=== PATIENT | female | born 1950 | race Asian ===

== ENCOUNTER 2017-03-08 12:47 | Outpatient (CLI) | payer OTHER ==
--- NOTE | 2017-03-09 09:28 | XRAY Report ---
LEFT HAND, THREE VIEWS: 03/08/2017 Moderate degree of narrowing is noted at the base of the first metacarpal and adjacent trapezium. Pr ominent spurring is seen at the base of the first metacarpal. Mild narrowing is noted of the left fi rst MP joint. Comminuted, impacted, dorsally angulated fracture of the distal left radius is once again seen. This has been fully described on patient's forearm fracture x-ray. There are no additional fractures pre sent. Patient's left hand and carpal bones appear intact. IMPRESSION: ACUTE COMMINUTED, IMPACTED AND DORSALLY ANGULATED FRACTURE OF THE DISTAL LEFT RADIUS IS ONCE AGAIN SEEN WITH INVOLVEMENT OF ITS DISTAL ARTICULAR SURFACE. EXAMINATION IS NEGATIVE FOR ADDITIONAL FRACTURES. OSTEOARTHRITIS IS NOTED OF MODERATE DEGREE AT THE ARTICULATION BETWEEN THE BASE OF THE FIRST METACARP AL AND TRAPEZIUM. JOB #: [id number] EXT JOB #:[id number]
--- NOTE | 2017-03-09 09:41 | XRAY Report ---
LEFT FOREARM, TWO VIEWS: 03/08/2017 FINDINGS: Acute mildly comminuted, dorsally angulated, mildly impacted fracture of the distal right radius is seen. Fracture probably involves the articular surface of the distal right radius. It mo ws an element of mild non-apposition on the lateral view between the major fracture fragments. The m ajor distal fracture fragment shows 47 degrees of angulation in relationship to the major proximal fr agment. Left ulna is intact including the left ulnar styloid process. IMPRESSION: ACUTE COMMINUTED, IMPACTED AND ANGULATED FRACTURE OF THE DISTAL LEFT RADIUS WITH PROBABL Y INVOLVEMENT OF ITS DISTAL ARTICULAR SURFACE. THERE IS 47 DEGREES OF ANGULATION OF THE DISTAL RADIA L FRACTURE FRAGMENT SEEN. COMMENT: Dr. Velasco informed the patient's physician, Dr. Muse of the above findings. Dr. Muse directed radiology staff to send the patient to the emergency room for treatment. This was done on 03/08/2017 at 1:20 p.m. JOB #: [id number] EXT JOB #:[id number]
== END 2017-03-08 12:48 | disposition home or self-care (01) ==
LOC: DI 12:47
PROVIDERS: ATTEND Family Medicine
DX: S52.502A Unspecified fracture of the lower end of left radius, initial encounter for closed fracture (principal)

== ENCOUNTER 2017-03-08 13:20 | Emergency (ER) | payer OTHER ==
[2017-03-08] MEDS ORDERED: BUPIVACAINE 0.5% PF 30 ML VIAL ONE (16:42)
--- NOTE | 2017-03-08 17:00 | ED Physician Documentation ---
PD HPI UPPER EXT INJURY - Stated complaint Stated Complaint: LT ARM INJURY - Chief complaint Chief Complaint: Ext Problem - History obtained from History obtained from: Patient, Friend - History of Present Illness Location: Left, Wrist Type of injury: Fall Where injury occurred: Home Timing - onset: Last night Timing - duration: Hours Timing - details: Abrupt onset, Still present Improved by: Rest, Ice, Immobilization Worsened by: Moving, Palpating Associated symptoms: Swelling, Discolored. No: Weakness, Numbness, Tingling Contributing factors: No: Anticoagulated Similar symptoms before: Has not had sx before Recently seen: Not recently seen - Additonal information Additional information: 66 y/o female on a 2 step ladder fell landing on the out stretched left hand and fracturing the left distal radius. She went in to see her PMD today and was x-rayed and has a fracture and she is sent here for reduction and splinting. Review of Systems Constitutional: denies: Fever Eyes: denies: Decreased vision Ears: denies: Ear pain Nose: denies: Congestion Throat: denies: Sore throat Cardiac: denies: Chest pain / pressure, Palpitations Respiratory: denies: Dyspnea, Cough GI: denies: Abdominal Pain, Nausea, Vomiting : denies: Dysuria, Frequency Skin: denies: Rash Musculoskeletal: reports: Extremity pain, Joint pain, Extremity swelling, Joint swelling. denies: Neck pain, Back pain Neurologic: denies: Generalized weakness, Focal weakness, Numbness PD PAST MEDICAL HISTORY - Present Medications Home Medications: Ambulatory Orders Medication Instructions Recorded Confirmed HYDROcod/ACETAM 5/325 [[place] 5/325] 1 - 2 ea PO Q6H PRN #15 tablet 03/08/17 - Allergies Allergies/Adverse Reactions: Allergies Allergy/AdvReac Type Severity Reaction Status Date / Time codeine AdvReac insomnia Verified 03/08/17 13:30 PD ED PE NORMAL - Vitals Vital signs reviewed: Yes (hypertensive) - General General: No acute distress, Well developed/nourished - HEENT HEENT: PERRL, Other (There is an ill defined area of tenderness to the left occiput without large hematoma and the neck is without tenderness. ) - Neck Neck: Supple, no meningeal sign, No bony TTP - Respiratory Respiratory: No respiratory distress - Back Back: No CVA TTP, No spinal TTP - Derm Derm: Normal color, No rash - Extremities Extremities: No edema, Other (There is swelling ecchymosis and deformity consistent with a distal radius fracture. There is preserved ROM and the patient notes that it does not hurt as much as it did last night. The distal n/ v is intact and the elbow and shoulder at not involved. ) - Neuro Neuro: No motor deficit, No sensory deficit - Psych Psych: Normal mood, Normal affect Results - Vitals Vitals: Vital Signs - 24 hr 03/08/17 03/08/17 03/08/17 13:26 17:45 17:55 Temperature 37.1 C Heart Rate 73 84 72 Respiratory 16 14 16 Rate Blood Pressure 138/90 H 154/90 H 150/78 H O2 Saturation 98 100 98 03/08/17 03/08/17 03/08/17 18:00 18:05 18:10 Temperature Heart Rate 68 69 69 Respiratory 14 14 13 Rate Blood Pressure 138/83 H 128/83 H 128/83 H O2 Saturation 100 100 96 03/08/17 19:00 Temperature Heart Rate 65 Respiratory 12 Rate Blood Pressure 114/72 O2 Saturation 94 Oxygen O2 Source Room air - Rads (name of study) Left forearm Radiology: EMP read indepedently (Distal radius fracture with dorsal angulation) Left wrist post reduction Radiology: Prelim report reviewed (Impression: Acute left distal radius fracture has been reduced into improved alignment. Mild dorsal displacement remains.), EMP read indepedently, See rad report Procedures - Procedural sedation Sedation prep: Informed consent, Time out completed, PE performed, AHA 1 - healthy Sedation medications: dilaudid, versed Patient status during sedation: Drowsy, Responds to verbal, Responds to tactile , Vitals remained stable, Maintained airway, Recovered uneventfully Sedation recovery: Recovered uneventfully, Back to baseline PD MEDICAL DECISION MAKING - ED course Complexity details: reviewed results, re-evaluated patient, considered differential, d/w patient, d/w family ED course: 66 y/o female with a FOOSH last night has a fracture of the distal left radius and Dr. Miles is consulted in the case and comes to the ED for reduction. The reduction is done with dilaudid and versed with splinting into a sugar tong. The reduction is done by Dr. Miles and the conscious sedation by the ED team. Departure - Departure Disposition: 01 Home, Self Care Clinical Impression: Left radial fracture Qualifiers: Encounter type: initial encounter Radius location: distal Fracture type: closed Fracture morphology: unspecified fracture morphology Qualified Code(s): S52.502A - Unspecified fracture of the lower end of left radius, initial encounter for closed fracture Condition: Stable Instructions: ED Fx Upper Ext Follow-Up: [facility] [Provider Group] Matthew Huitron DO [Primary Care Provider] - Prescriptions: HYDROcod/ACETAM 5/325 [[place] 5/325] 1 - 2 ea PO Q6H PRN #15 tablet PRN Reason: Pain
[2017-03-08] MEDS ORDERED: HYDROmorphone 1 MG/ML SYRINGE IVP STA ×2 (17:40→17:51)
[2017-03-08] MEDS ORDERED: MIDAZOLAM 2 MG/2 ML VIAL IVP STA (17:40)
[2017-03-08] MEDS ORDERED: ONDANSETRON 4 MG/2 ML VIAL IVP STA (17:40)
[2017-03-08] MEDS ORDERED: HYDROmorphone 1 MG/ML SYRINGE ONE ×2 (17:46→17:48)
[2017-03-08] MEDS ORDERED: ONDANSETRON 4 MG/2 ML VIAL ONE (17:46)
[2017-03-08] MEDS ORDERED: MIDAZOLAM 2 MG/2 ML VIAL ONE (17:46)
--- NOTE | 2017-03-08 18:52 | XRAY Preliminary Report ---
Exam: XR Wrist 2 View LT IMPRESSION: Acute left distal radial fracture has been reduced into improved alignment. Mild dorsal d isplacement remains. [facility] SITE ID: [id number]
--- NOTE | 2017-03-08 18:55 | XRAY Report ---
EXAM: LEFT WRIST RADIOGRAPHY EXAM DATE: 03/08/2017 06:30 PM. CLINICAL HISTORY: Post reduction . COMPARISON: 03/08/2017. TECHNIQUE: 2 views. FINDINGS: Bones: Acute left distal radial fracture has been reduced into improved alignment. Mild dorsal displa cement remains. New overlying cast. Joints: No dislocation. Mild first carpometacarpal osteoarthritis. IMPRESSION: Acute left distal radial fracture has been reduced into improved alignment. Mild dorsal d isplacement remains. [facility] Referring Provider Line: [phone] SITE ID: [id number]
[2017-03-08 19:05] VITALS: BP 114/72
== END 2017-03-08 20:43 | disposition home or self-care (01) ==
LOC: ED 13:20
DX: S52.502A Unspecified fracture of the lower end of left radius, initial encounter for closed fracture (principal); W01.0XXA Fall on same level from slipping, tripping and stumbling without subsequent striking against object, initial encounter; Y92.019 Unspecified place in single-family (private) house as the place of occurrence of the external cause
CPT/HCPCS: 25560; 73090; 73100; 73130; 94770; 96374; 96375; 96376; 99283; 99284; J1170

== ENCOUNTER 2017-03-20 14:52 | Outpatient (CLI) | payer OTHER ==
--- NOTE | 2017-03-20 19:51 | XRAY Report ---
TWO VIEW LEFT WRIST: 03/20/2017 CLINICAL INDICATION: Fall, fracture followup. COMPARISON: 03/08/2017 Frontal and lateral views of the left wrist demonstrate increasing dorsal angulation and foreshorteni ng of the distal radial fracture. Osteoarthritic changes are stable. Some callus formation is prese nt. IMPRESSION: INCREASING DORSAL ANGULATION AND FORESHORTENING OF THE DISTAL RADIAL FRACTURE FROM 03/08. JOB #: [id number] EXT JOB #:[id number]
== END 2017-03-20 14:53 | disposition home or self-care (01) ==
LOC: DI 14:52
PROVIDERS: ATTEND Orthopaedic Surgery
DX: S52.532D Colles' fracture of left radius, subsequent encounter for closed fracture with routine healing (principal)

== ENCOUNTER 2017-10-17 14:09 | Outpatient (CLI) | payer OTHER ==
--- NOTE | 2017-10-18 14:27 | DEXA Report ---
DEXA SCAN: 10/17/2017 CLINICAL INDICATION: Postmenopausal. TECHNIQUE: Dual energy x-ray absorptiometry (DXA) was performed on a [employer] system. Regions measured are the AP spine, femoral neck, and, if needed, forearm. COMPARISON: None. In accordance with the International Society for Clinical Densitometry (ISCD) guidelines, data from previous exams may be reanalyzed using current recommendations and techniques. This is done to allow a more accurate basis for comparison with the current study. FINDINGS The data for the lumbar spine is as follows: REGION BMD (g/cm/cm) T-SCORE Z-SCORE L1 0.876 -2.1 -0.2 L2 0.822 -3.1 -1.2 L3 1.072 -1.1 0.9 L4 0.946 -2.1 -0.2 L1-L4 0.923 -2.1 -0.2 NOTE: All evaluable vertebrae are used for classification. REGION BMD (g/cm/cm) T-SCORE Z-SCORE Neck 0.770 -1.9 -0.2 TOTAL 0.741 -2.1 -0.7 NOTE: The femoral neck or total proximal femur, whichever is lowest, is used for classification. IMPRESSION THE WHO CLASSIFICATION BASED ON THE INTERNATIONAL REFERENCE STANDARD IS OSTEOPENIA. THE FRACTURE RISK IS INCREASED. RECOMMENDATION: Patients with diagnosis of osteoporosis or osteopenia should have regular bone mineral density assessment. For those eligible for Medicare, routine testing is allowed once every 2 years. Testing frequency can be increased for patients who have rapidly progressing disease or for those who are receiving medical therapy to restore bone mass. COMMENT: World Health Organization (WHO) definitions for osteoporosis and osteopenia: NORMAL BMD: T-score at 1.0 or higher, fracture risk is low. OSTEOPENIA BMD: T-score between 1.0 and -2.5, fracture risk is increased. OSTEOPOROSIS BMD: T-score at 2.5 or lower, fracture risk high. National Osteoporosis Foundation recommends: 1. Obtain adequate dietary calcium (at least 1200 mg per day) and vitamin D (400 -800 international units per day). 2. Participate, as appropriate, in regular weightbearing and muscle- strengthening exercise. 3. Avoid tobacco use and reduce alcohol and caffeine intake. 4. For more detailed information see the website at www.NOF.org. TD: 10/17/2017 16:07 MTDForrest
== END 2017-10-17 14:10 | disposition home or self-care (01) ==
LOC: DI 14:09
PROVIDERS: ATTEND Nurse Practitioner Adult Health
DX: Z13.820 Encounter for screening for osteoporosis (principal); M85.89 Other specified disorders of bone density and structure, multiple sites; Z78.0 Asymptomatic menopausal state
CPT/HCPCS: 77080

== ENCOUNTER 2019-11-13 11:30 | Outpatient (CLI) | payer OTHER ==
--- NOTE | 2019-11-17 10:18 | Mammography Report ---
Reason: ROUTINE MAMMO Procedure Date: 11/13/2019 Accession Number: [id number] / [id number] Procedure: SEGUNDO - Screening Mammo w/Jose J CPT Code: Final Report FULL RESULT: EXAM: Screening Mammo w/Jose J DATE: 11/13/2019 11:55 AM CLINICAL HISTORY: Screening encounter. History of nulliparity. TECHNIQUE: (B) - Bilateral CC and MLO views were obtained. COMPARISON: 11/08/2017 through 02/04/2013. PARENCHYMAL PATTERN: (A) - The breast(s) demonstrate(s) scattered fibroglandular densities. FINDINGS: There are no suspicious masses, calcifications, or areas of distortion. IMPRESSION: Negative examination. BI-RADS category 1. RECOMMENDATION: (ANNUAL) - Recommend routine annual screening mammography. BI-RADS CATEGORY: (1) - Negative. STANDARD QUALIFYING STATEMENTS: 1. This examination was not reviewed with the aid of Computer-Aided Detection (CAD). 2. A negative or benign imaging report should not preclude biopsy if clinically suspicious findings are present. 3. Dense breasts may obscure an underlying neoplasm. 4. This examination was reviewed with the aid of 3D breast imaging (tomosynthesis).
== END 2019-11-13 11:31 | disposition home or self-care (01) ==
LOC: DI 11:30
PROVIDERS: ATTEND Physician Assistant
DX: Z12.31 Encounter for screening mammogram for malignant neoplasm of breast (principal)
CPT/HCPCS: 77063; 77067

== ENCOUNTER 2019-11-13 18:18 | Emergency (ER) | payer MEDICARE, OTHER ==
[2019-11-13 18:26] VITALS: BP 154/88
[2019-11-13] MEDS ORDERED: BUFFERED LIDOCAINE 10 ML SYRINGE SUBQ STA (18:41)
[2019-11-13] MEDS ORDERED: cephALEXin 250 MG CAPSULE PO STA (18:42)
--- NOTE | 2019-11-13 18:42 | ED Physician Documentation ---
PD HPI UPPER EXT INJURY - Stated complaint Stated Complaint: LT FINGER LAC - Chief complaint Chief Complaint: Laceration - History obtained from History obtained from: Patient - History of Present Illness Location: Left (Right-handed woman who is up-to-date on tetanus cut her left fifth finger on broken glass at home just prior to arrival.) Review of Systems Constitutional: reports: Reviewed and negative Nose: reports: Reviewed and negative Throat: reports: Reviewed and negative Cardiac: reports: Reviewed and negative PD PAST MEDICAL HISTORY - Past Surgical History Past Surgical History: No - Present Medications Home Medications: Ambulatory Orders Medication Instructions Recorded Confirmed HYDROcod/ACETAM 5/325 [[place] 5/325] 1 - 2 ea PO Q6H PRN #15 tablet 03/08/17 Cephalexin [Keflex] 500 mg PO Q6H #28 capsule 11/13/19 - Allergies Allergies/Adverse Reactions: Allergies Allergy/AdvReac Type Severity Reaction Status Date / Time codeine AdvReac insomnia Verified 11/13/19 18:48 - Social History Does the pt smoke?: No Smoking Status: Never smoker Does the pt drink ETOH?: No - Immunizations Immunizations are current?: Yes PD ED PE NORMAL - Vitals Vital signs reviewed: Yes - General General: Alert and oriented X 3, No acute distress - Extremities Extremities: Other (There is a laceration across the palmar surface of the right fifth finger just proximal to the PIP. She does not have sensation on the ulnar side distal to this. There is also concern for flexor tendon injury on initial examination that will have to be corroborated after anesthetic.) - Neuro Neuro: Alert and oriented X 3, Normal speech Results - Vitals Vitals: Vital Signs - 24 hr 11/13/19 18:24 Temperature 36.8 C Heart Rate 95 Respiratory 22 Rate Blood Pressure 154/88 H O2 Saturation 98 Oxygen O2 Source Room air Procedures - Laceration (location) L 5th finger Length in cm: 2 Wound type: Stellate, Other (On examination it was clear that she had at least a digital or nerve injury on the ulnar side and she also had what appeared to be a complete flexor tendon laceration of the fifth digit.) Neurovascular status: No: Sensory intact, Motor intact Tendon involvement: Tendon Injury. No: Tendon intact Anesthesia: Lidocaine 1%, With bicarb Skin layer closure: Interrupted, Other (The skin was closed loosely with 4-0 nylon and splinted pending follow-up with a hand surgeon.) Other: Tetanus UTD Complexity: Simple Departure - Departure Disposition: 01 Home, Self Care Clinical Impression: Laceration Condition: Good Record reviewed to determine appropriate education?: Yes Instructions: ED Laceration Hand Prescriptions: Cephalexin [Keflex] 500 mg PO Q6H #28 capsule Comments: As discussed, it appears that you have a flexor tendon injury and a nerve injury of the fifth finger. You need to follow-up with hand surgeon, the closest is Dr. Jack Whyte in [place]. Call his office tomorrow at [phone]. Make sure you make it clear that you have a tendon injury in the finger. Flexor tendon injury. For the most part keep the splint on and dry, you can remove it briefly for soap and water but then replace the dressing and keep the splint on. If you are unable to follow-up with Dr. Nunez, drop me an email at [email or web address]; And I will try to get you in to [facility].
[2019-11-13] MEDS ORDERED: TETANUS/DIPHTHERIA TOXOID 0.5 ML SYRINGE IM ONE (19:36)
[2019-11-13] MEDS ORDERED: TETANUS/DIPHTHERIA/PERTUSSIS 0.5 ML SYRINGE IM ONE (19:39)
== END 2019-11-13 19:15 | disposition home or self-care (01) ==
LOC: ED 18:18
DX: S61.217A Laceration without foreign body of left little finger without damage to nail, initial encounter (principal); S66.127A Laceration of flexor muscle, fascia and tendon of left little finger at wrist and hand level, initial encounter; S64.497A Injury of digital nerve of left little finger, initial encounter; W25.XXXA Contact with sharp glass, initial encounter; Y93.E9 Activity, other interior property and clothing maintenance; Y92.009 Unspecified place in unspecified non-institutional (private) residence as the place of occurrence of the external cause
CPT/HCPCS: 12001; 90471; 90714; 99282; 99283; A9270

== ENCOUNTER 2021-12-29 12:28 | Outpatient (CLI) | payer OTHER ==
--- NOTE | 2021-12-30 09:48 | Mammography Report ---
BILATERAL DIGITAL SCREENING MAMMOGRAM 3D/2D: 12/29/2021 CLINICAL: Routine screening. Comparison is made to exams dated: 11/13/2019 mammogram - [facility], 02/04/2013 [facility] mogram, 11/08/2017 mammogram, 03/24/2014 mammogram, and 07/08/2015 mammogram - [facility] . The tissue of both breasts is predominantly fatty. There are benign calcifications in the right breast. No significant masses, calcifications, or other findings are seen in either breast. There has been no significant interval change. IMPRESSION: BENIGN There is no mammographic evidence of malignancy. A 1 year screening mammogram is recommended. This exam was interpreted at Station ID: [id number]. NOTE: For mammograms, a report in lay terms will be sent to the patient. Approximately 15% of breast malignancies will not be visualized mammographically. In the management of a palpable breast mass, a negative mammogram must not discourage biopsy of a clinically suspicious lesion. Electronically Signed By: Ke Pierre acr/penrad:12/29/2021 17:22:36 ACR BI-RADS Category 2: Benign Finding(s) 3342F PARENCHYMAL PATTERN: (F) - The breast(s) demonstrate(s) diffuse fatty replacement. BI-RADS CATEGORY: (2) - 2 RECOMMENDATION: (ANNUAL) - Recommend routine annual screening mammography. [id number] 1 year screening LATERALITY: (B)
== END 2021-12-29 12:29 | disposition home or self-care (01) ==
LOC: DI.N 12:28
PROVIDERS: ATTEND Physician Assistant
DX: Z12.31 Encounter for screening mammogram for malignant neoplasm of breast (principal)

== ENCOUNTER 2022-02-24 13:20 | Outpatient (CLI) | payer MEDICARE, OTHER ==
--- NOTE | 2022-02-24 14:51 | DEXA Report ---
PROCEDURE: Dexa Spine and/or Hip INDICATIONS: POST MENOPAUSAL TECHNIQUE: Dual energy x-ray absorptiometry (DXA) was performed on a [employer] System. Regions measur ed are the AP Spine, femoral neck, and if needed forearm. COMPARISON: 10/17/2017 FINDINGS: Lumbar Spine: Bone Mineral Density 0.928 g/cm/cm,T score -2.1, osteopenia. Change from previous 0.5% Left Hip: Bone Mineral Density 0.726 g/cm/cm,T score -2.2, osteopenia, change from previous -2.0% Left Femoral Neck: Bone Mineral Density 0.683 g/cm/cm, T score -2.6, osteoporosis (T score greater or equal to -1.0: NORMAL) (T score from -1.1 to -2.4: OSTEOPENIA) (T score less than or equal to -2.5 to: OSTEOPOROSIS) Impression: Osteoporosis puts the patient at a high-risk of fracture. 2.0% decrease in left hip bone mineral density compared to the prior study. Patients with diagnosis of osteoporosis or osteopenia should have regular bone mineral density assess ment. For those eligible for Medicare, routine testing is allowed once every 2 years. Testing frequ ency can be increased for patients who have rapidly progressing disease or for those who are receivin g medical therapy to restore bone mass. Reviewed by: Beverly Rodriges MD on 02/24/2022 2:49 PM PDT Approved by: Beverly Rodriges MD on 02/24/2022 2:49 PM PDT Station ID: [id number]
== END 2022-02-24 13:21 | disposition home or self-care (01) ==
LOC: DI 13:20
PROVIDERS: ATTEND Physician Assistant
DX: M81.0 Age-related osteoporosis without current pathological fracture (principal); N95.8 Other specified menopausal and perimenopausal disorders

== ENCOUNTER 2023-11-22 13:16 | Outpatient (CLI) | payer OTHER ==
--- NOTE | 2023-11-23 11:34 | Mammography Report ---
BILATERAL DIGITAL SCREENING MAMMOGRAM 3D/2D: 11/22/2023 CLINICAL: Routine screening. Comparison is made to exams dated: 12/29/2021 mammogram, 11/13/2019 mammogram - [facility], 11/08/2017 mammogram, 07/08/2015 mammogram, 03/24/2014 mammogram, and 02/04/2013 mammogram - [facility]. There are scattered areas of fibroglandular density in both breasts (category b / 25%-50% glandular t issue). There are benign calcifications in the right breast. No significant masses, calcifications, or other findings are seen in either breast. There has been no significant interval change. IMPRESSION: BENIGN There is no mammographic evidence of malignancy. A 1 year screening mammogram is recommended. Based on the Tyrer Cuzick model (a risk assessment model) the patient's lifetime risk is 6.3% and her 10 year risk is 4.0%. According to the ACR, ACS, and NCCN guidelines, an annual breast MRI exam brian g with mammogram is recommended if the patient's lifetime risk is 20% or greater. This exam was interpreted at Station ID: [id number]. NOTE: For mammograms, a report in lay terms will be sent to the patient. Approximately 15% of breast malignancies will not be visualized mammographically. In the management of a palpable breast mass, a negative mammogram must not discourage biopsy of a clinically suspicious lesion. Electronically Signed By: Ish gaxiola/arti:11/22/2023 13:50:23 letter sent: No_Letter ACR BI-RADS Category 2: Benign Finding(s) 3342F PARENCHYMAL PATTERN: (A) - The breast(s) demonstrate(s) scattered fibroglandular densities. BI-RADS CATEGORY: (2) - 2 RECOMMENDATION: (ANNUAL) - Recommend routine annual screening mammography. [id number] 1 year screening LATERALITY: (B)
== END 2023-11-22 13:17 | disposition home or self-care (01) ==
LOC: DI.N 13:16
PROVIDERS: ATTEND Physician Assistant
DX: Z12.31 Encounter for screening mammogram for malignant neoplasm of breast (principal); R92.323 Mammographic fibroglandular density, bilateral breasts

== ENCOUNTER 2024-03-14 12:41 | Outpatient (CLI) | payer MEDICARE, OTHER ==
--- NOTE | 2024-03-15 11:39 | DEXA Report ---
PROCEDURE: Dexa Spine and/or Hip INDICATIONS: MENOPAUSAL TECHNIQUE: Dual energy x-ray absorptiometry (DXA) was performed on a [employer] System. Regions measur ed are the AP Spine, femoral neck, and if needed forearm. COMPARISON: 02/24/2022 FINDINGS: Lumbar Spine: Bone Mineral Density: 0.885 g/cm/cm,T score: -2.3. Since the most recent prior study, there has been a statistically significant increase in bone mineral density by 4.1 percent. Left Femoral Neck: Bone Mineral Density: 0.758 g/cm/cm, T score: -2.0. Left Hip: Bone Mineral Density: 0.739 g/cm/cm,T score: -2.1. Since the most recent prior study, there has been a statistically significant increase in bone mineral density by 1.8 percent. (T score greater or equal to -1.0: NORMAL) (T score from -1.1 to -2.4: OSTEOPENIA) (T score less than or equal to -2.5 to: OSTEOPOROSIS) Impression: By WHO criteria, this patient has low bone density (osteopenia). Interval statistical increase in bone mineral density of the lumbar spine. Interval statistical incre ase in bone mineral density of the hip. Patients with diagnosis of osteoporosis or osteopenia should have regular bone mineral density assess ment. For those eligible for Medicare, routine testing is allowed once every 2 years. Testing frequ ency can be increased for patients who have rapidly progressing disease or for those who are receivin g medical therapy to restore bone mass. Reviewed by: Sai Rutherford MD on 03/15/2024 11:38 AM PDT Approved by: Sai Rutherford MD on 03/15/2024 11:38 AM PDT Station ID: [id number]
== END 2024-03-14 12:42 | disposition home or self-care (01) ==
LOC: DI 12:41
PROVIDERS: ATTEND Internal Medicine
DX: N95.8 Other specified menopausal and perimenopausal disorders (principal); M85.89 Other specified disorders of bone density and structure, multiple sites